=== PATIENT | female | born 1995 | race Caucasian/White ===

== ENCOUNTER → 2020-02-27 | Outpatient (CLI) | payer OTHER, SELFPAY ==
[2020-02-27 11:22] VITALS: BMI 36.3
[2020-02-27 16:04] LABS: Chlamydia Trachomatis by PCR Negative (Negative); Neisserai gonorrhoeae by PCR Negative (Negative); Probe Check PASS; Sample Adequacy Control PASS; Specimen Processing Control PASS
== END | disposition home or self-care (01) ==
LOC: LABSPEC 13:04
PROVIDERS: Referring Provider Nurse Practitioner Women's Health; Visit Provider Nurse Practitioner Women's Health
DX: Z11.3 Encounter for screening for infections with a predominantly sexual mode of transmission (principal)
CPT/HCPCS: 87491; 87591

== ENCOUNTER → 2020-02-28 17:00 | Outpatient (CLI) | payer OTHER, SELFPAY ==
[2020-02-27 11:22] VITALS: BMI 36.3
--- NOTE | 2020-02-28 17:07 | US_ITS ---
STUDY: SUPERFICIAL ULTRASOUND - REASON FOR EXAM: Female, 24 years old. lump right axilla TECHNIQUE: A superficial ultrasound was performed with real-time and static song-scale imaging. COMPARISON: None. FINDINGS: There is an approximately 1.0 x 0.7 x 0.3 cm hypoechoic structure with peripheral blood flow in the right axilla, presumably the patient''s palpable lump. This may represent a small fluid collection or less likely a lymph node.. Clinical correlation recommended. US/Other Unlisted US Procedure IMPRESSION: Findings suggestive of small fluid collection or less likely a lymph node in the right axilla. Follow-up ultrasound in 2 weeks may be obtained. Electronically Signed: Carlos Alvarez, at 3:32 EST Tel , Service support ,
== END ==
PROVIDERS: Referring Provider Nurse Practitioner Women's Health; Visit Provider Nurse Practitioner Women's Health
DX: R22.31 Localized swelling, mass and lump, right upper limb (principal)
CPT/HCPCS: 76999

== ENCOUNTER → 2020-03-23 16:22 | Outpatient (CLI) | payer OTHER, SELFPAY ==
[2020-03-09 13:08] VITALS: BMI 35.5
--- NOTE | 2020-03-23 16:31 | US_ITS ---
STUDY: SUPERFICIAL ULTRASOUND - RIGHT AXILLA REASON FOR EXAM: Female, 24 years old. LUMP RIGHT AXILLA F/U TECHNIQUE: A superficial ultrasound was performed with real-time and static song-scale imaging. COMPARISON: 02/28/2020 FINDINGS: There is no change in a 9 mm hypoechoic area within the superficial subcutaneous fat of the right axilla of uncertain etiology and significance. US/Ext Non Vasc Limited/Soft Tiss IMPRESSION: No change in 9 mm oval hypoechoic area within the superficial subcutaneous fat of the right axilla of uncertain etiology and significance. Electronically Signed: Nils Olivia MD at 7:05 EST Tel , Service support ,
== END ==
PROVIDERS: Referring Provider Surgery; Visit Provider Surgery
DX: M79.89 Other specified soft tissue disorders (principal)
CPT/HCPCS: 76882

== ENCOUNTER → 2020-05-03 | Outpatient (CLI) | payer OTHER, SELFPAY ==
[2020-03-09 13:08] VITALS: BMI 35.5
--- NOTE | 2020-05-03 15:30 | AXNB_PTH ---
PATIENT: ANNEMARIE TORREZ LOC: [facility] U#:[id number] AGE/SX: 24/F ROOM: RE05/03/[address]: Dr. Johanne Garsia MD : 1995 BED: DIS: 05/03/2020 SPEC #: [id number] RECD: 05/03/20 16:09 STATUS: MOY REKatie #: [id number] LYNNE: 05/03/20 15:[address]: Johanne Garsia DEPT: SURGICAL PATHOLOGY RECD BY: Zunilda Durbin ENTERED: 05/04/20 08:41 SP TYPE: AX NODE BX OTHR DR: No Primary Care Phys Tissues: Axillary lymph node, NOS Procedures: Special Stain Group I Surgery Specimen Level IV AFB Stain (control) GMS Stain (control) HEADER OPERATION: Excision of right axillary nodule PRE-OP DIAGNOSIS: Right axillary nodule TISSUE SUBMITTED: Right axillary tissue MICROSCOPIC DIAGNOSIS Right axillary nodule, biopsy: Inflammatory nodule. See comment. AM:jennifer 05/07/20 COMMENT Sections show an inflammatory nodule consisting of polarizable material, histiocytic reaction, acute inflammation and dystrophic microcalcifications. The process appears to involve a lymph node. Special stains AFB and GMS with matched controls are negative for microorganisms. Clinical correlation is suggested. MICROSCOPIC DESCRIPTION Slides are reviewed. GROSS DESCRIPTION Received in fixative is one container labeled with the patient's name and designated right axillary nodule. The specimen consists of a piece of skin with underlying tissue. The skin piece measures 0.8 x 0.2 cm. The underlying tissue measures 2 x 0.8 x 0.3 cm. The entire specimen is submitted in one cassette. / SJ:jennifer 05/04/20 TC:2 CPT: 38286, 79660 x2
== END | disposition home or self-care (01) ==
PROVIDERS: Referring Provider Surgery; Visit Provider Surgery
DX: R22.2 Localized swelling, mass and lump, trunk (principal)
CPT/HCPCS: 88305; 88312